=== PATIENT | female | born 1940 | race Caucasian/White ===

== ENCOUNTER 2017-07-13 13:56 | Emergency (ER) | payer MEDICARE ==
[2017-07-13 13:59] VITALS: BP 124/62; PULSE 56; RESP 14; TEMP 98.3; O2SAT 99
[2017-07-13 14:02] VITALS: BMI 28.5
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
--- NOTE | 2017-07-14 15:36 | CARD ---
APPROVED REPORT EKG Measurement Heart [id number] <Conclusion> Sinus bradycardia with 1st degree AV block Nonspecific T wave abnormality Abnormal ECG
== END 2017-07-13 14:47 | disposition home or self-care (01) ==
LOC: C.ER 13:56
DX: F41.9 Anxiety disorder, unspecified (principal); I10 Essential (primary) hypertension